=== PATIENT | male | born 1965 | race Caucasian/White ===

== ENCOUNTER 2016-07-03 19:49 | Emergency (ER) | payer MEDICAID ==
[2016-07-03 20:16] VITALS: BP 143/81
--- NOTE | 2016-07-03 20:34 | UC ---
Dizzy HPI HPI Summary: The patient comes in today for: 1. Headache, nausea, dry throat, dizziness (he defines "dizziness" as feeling "lost"). Onset: Today. Palliative/provocative: Breathing fast makes him feel better. Quality: headache. Region: Head Severity: 10 (headache." Time: Comes and goes. Associated symptoms: Dizziness: He states that he will have disorientation for 20 seconds. He denies any problems with heaviness of limbs. He states that the "dizziness" will start as headache--then "Like something is leaking," then nausea, then dry throat, and then cold sweats. These episodes last 3-5 minutes and he has had 6 episodes today. FEvers: None. He is not having any of these symptoms at this time except for the "slight headache." Otherwise he feels well. * - History Of Current Complaint Chief Complaint: UCGeneralIllness Stated Complaint: HEADACHE NAUSEA LEFT ARM TINGLY Time Seen by Provider: 07/03/16 20:14 Hx Obtained From: Patient, Family/Tool Specialist - Allergies/Home Medications Allergies/Adverse Reactions: Allergies Allergy/AdvReac Type Severity Reaction Status Date / Time No Known Allergies Allergy Verified 07/03/16 20:16 Home Medications: Home Medications Amlodipine Besylate [Norvasc 5 mg tab] 5 mg PO DAILY 07/03/16 [History Confirmed 07/03/16] Aspirin [Aspirin 81 MG TAB] 81 mg PO DAILY 07/03/16 [History Confirmed 07/03/16] Clopidogrel TAB* [Plavix TAB*] 75 mg PO DAILY 07/03/16 [History Confirmed ] Losartan/HCTZ 100/25 (NF) [Hyzaar 100/25 (NF)] 1 tab PO DAILY 07/03/16 [History Confirmed 07/03/16] Omeprazole CAP* [Prilosec CAP* 20 MG] 20 mg PO DAILY 07/03/16 [History Confirmed 07/03/16] PMH/Surg Hx/FS Hx/Imm Hx Previously Healthy: No - PVD with right leg stent, "mood disorder." Endocrine History Of: Denies: Diabetes, Thyroid Disease, Hyperthyroidism, Hypothyroidism, Dyslipidemia Cardiovascular History Of: Reports: Hypertension Denies: Cardiac Disorders, Pacemaker/ICD, Myocardial Infarction, Congestive Heart Failure, Atrial Fibrillation, Deep Vein Thrombosis, Bleeding Disorders Respiratory History Of: Denies: COPD, Asthma, Bronchitis, Pneumonia, Pulmonary Embolism GI/ History Of: Reports: Gastroesophageal Reflux Denies: Ulcer, Gastrointestinal Bleed, Gall Bladder Disease, Kidney Stones, Diverticulitis, Renal Disease, Urosepsis Neurological History Of: Denies: TIA, CVA, Dementia, Seizures, Migraine Psychological History Of: Denies: Anxiety, Depression, Bipolar Disorder, Schizophrenia, Post Traumatic Stress Disorder Cancer History Of: Denies: Lung Cancer, Breast Cancer, Prostate Cancer, Cervical Cancer Other History Of: Anticoagulant Therapy - Aspirin and Plavix for PVD/stent. Negative For: HIV, Hepatitis B, Hepatitis C - Surgical History Surgical History: Yes Surgery Procedure, Year, and Place: iliac arteries stenting 04/2016 for partial occlusion - Family History Known Family History: Positive: Cardiac Disease, Hypertension, Other - Denies [facility] of vascular disease - Social History Occupation: Employed Full-time Alcohol Use: None Substance Use Type: None Smoking Status (MU): Heavy Every Day Tobacco Smoker Type: Cigarettes Amount Used/How Often: 1 PPD Length of Time of Smoking/Using Tobacco: 37 Years Have You Smoked in the Last Year: Yes Household Exposure Type: Cigarettes Review of Systems Constitutional: Negative Skin: Negative Eyes: Negative ENT: Negative Respiratory: Negative Cardiovascular: Negative Gastrointestinal: Negative Genitourinary: Negative All Other Systems Reviewed And Are Negative: Yes Physical Exam Triage Information Reviewed: Yes Appearance: Well-Appearing, No Pain Distress, Well-Nourished Vital Signs: Initial Vital Signs Temp 98.3 F 07/03/16 20:04 Pulse 65 07/03/16 20:04 Resp 24 07/03/16 20:04 BP 143/81 07/03/16 20:04 Pulse Ox 98 07/03/16 20:04 Vital Signs Reviewed: Yes Eyes: Positive: Conjunctiva Clear. Negative: Discharge ENT: Positive: Hearing grossly normal. Negative: Pharyngeal erythema, Nasal congestion Dental: Negative: Gross Decay/Caries @, Dental Fracture @ Neck: Positive: Supple, Nontender, No Lymphadenopathy, Other: - No carotid bruits. Carotid pulses were 2+/2 x 2. Negative: Nuchal Rigidity Respiratory: Positive: Lungs clear, No respiratory distress, No accessory muscle use. Negative: Rhonchi, Wheezing Cardiovascular: Positive: RRR, No Murmur Abdomen Description: Positive: Nontender, No Organomegaly, Soft. Negative: Distended, Guarding Musculoskeletal: Positive: Strength Intact, ROM Intact, No Edema Neurological: Positive: Alert, Muscle Tone Normal Psychological: Positive: Age Appropriate Behavior, Consolable Skin: Negative: rashes, breakdown Diagnostics - Laboratory Diagnostic Studies Completed/Ordered: EKG: Rate: 63. Rhythm: Sinus. Ectopy: None. Acute changes: None Dizzy Course/Dx - Course Course Of Treatment: The patient was told that his symptoms were very atypical and non-focal making the formation of a diagnosis difficult. Considering his vasculopathic history, he was told that my concern is that his constellation of symptoms may very well be an unusual TIA-like event, and therefore my recommendation was for him to go the ER. However, he did not want to do that. He was told what the worse case scenario was (permanent stoke if he survived). All his questions were answered. - Differential Dx/Diagnosis Provider Diagnoses: Headache. Dizziness Discharge - Discharge Plan Condition: Stable Disposition: AGAINST MEDICAL ADVICE Patient Education Materials: Dizziness (ED), Transient Ischemic Attack (ED) Referrals: Non Staff,Doctor [Primary Care Provider] - As Soon As Possible (If you are not going to the ER at this time, please reconsider if you get worse. Otherwise, please see your primary care provider as soon as you can.)
== END 2016-07-03 21:07 | disposition left against medical advice (07) ==
LOC: UCCORT 19:49
DX: R51 Headache (principal); R42 Dizziness and giddiness; F17.210 Nicotine dependence, cigarettes, uncomplicated
CPT/HCPCS: 93005; 99212; G0463

== ENCOUNTER 2018-08-21 14:24 | Emergency (ER) | payer MEDICAID, OTHER ==
[2018-08-21 14:46] VITALS: BP 149/78
--- NOTE | 2018-08-21 15:05 | UC ---
Shoulder Pain HPI - HPI Summary HPI Summary: 53 yo right handed male with left shoulder pain x 2 days no injury he has been working removing kitchen cabinets no hx prior shoulder issuess - History of Current Complaint Chief Complaint: UCUpperExtremity Stated Complaint: LEFT SHOULDER PAIN Time Seen by Provider: 08/21/18 14:41 Hx Obtained From: Patient Onset/Duration: Gradual Onset Severity Initially: Moderate Severity Currently: Severe Location Of Pain: Is Diffuse Pain Intensity: 8 Pain Scale Used: 0-10 Numeric Character: Aching, Throbbing, Spasmodic, Stiffness Aggravating Factor(s): Movement, Internal Rotation, External Rotation, Abduction Alleviating Factor(s): Nothing Related History: Dominant Hand Right Torso: 1 - pain/tenderness - Allergies/Home Medications Allergies/Adverse Reactions: Allergies Allergy/AdvReac Type Severity Reaction Status Date / Time No Known Allergies Allergy Verified 08/21/18 14:38 PMH/Surg Hx/FS Hx/Imm Hx Previously Healthy: Yes Endocrine History: Dyslipidemia Cardiovascular History: Hypertension Other Cardiovascular History: peripheral vascular dz Other History Of: Anticoagulant Therapy - Aspirin and Plavix for PVD/stent. Negative For: HIV, Hepatitis B, Hepatitis C - Surgical History Surgical History: Yes Surgery Procedure, Year, and Place: iliac arteries stenting 04/2016 for partial occlusion - Family History Known Family History: Positive: Cardiac Disease, Hypertension, Other - Denies [facility] of vascular disease - Social History Alcohol Use: Rare Substance Use Type: None Smoking Status (MU): Heavy Every Day Tobacco Smoker Type: Cigarettes Amount Used/How Often: 7 CIGS ADAY Length of Time of Smoking/Using Tobacco: 37 Years Have You Smoked in the Last Year: Yes Household Exposure Type: Cigarettes Review of Systems All Other Systems Reviewed And Are Negative: Yes Constitutional: Positive: Negative Skin: Positive: Negative Eyes: Positive: Negative ENT: Positive: Negative Respiratory: Positive: Negative Cardiovascular: Positive: Negative Gastrointestinal: Positive: Negative Genitourinary: Positive: Negative Neurovascular: Positive: Negative Musculoskeletal: Positive: Arthralgia - left shoulder Neurological: Positive: Negative Psychological: Positive: Negative Physical Exam Triage Information Reviewed: Yes Appearance: Well-Appearing, No Pain Distress, Well-Nourished Vital Signs: Initial Vital Signs Temp 97.2 F 08/21/18 14:40 Pulse 75 08/21/18 14:40 Resp 18 08/21/18 14:40 BP 149/78 08/21/18 14:40 Pulse Ox 98 08/21/18 14:40 Vital Signs Reviewed: Yes Eyes: Positive: Conjunctiva Clear ENT: Positive: Hearing grossly normal, Uvula midline. Negative: Nasal congestion, Nasal drainage, Tonsillar exudate, Trismus, Hoarse voice Neck: Positive: Supple, Nontender, No Lymphadenopathy Respiratory: Positive: Lungs clear, Normal breath sounds, No respiratory distress Cardiovascular: Positive: RRR, No Murmur Musculoskeletal: Positive: ROM Limited @ - left shoulder - unable to abduct > 30 degrees, pain with int and ext rotation Neurological: Positive: Alert Psychological Exam: Normal Skin Exam: Normal Diagnostics - Radiology No standard instances Radiology Interpretation Completed By: Radiologist Summary of Radiographic Findings: mild AC arthritis Shoulder Course/Dx - Course Course Of Treatment: pt declined sling, ortho referral or steroid injection stated he will see his MD Thursday - Differential Dx/Diagnosis Provider Diagnosis: Left shoulder tendonitis Discharge - Sign-Out/Discharge Documenting (check all that apply): Patient Departure All imaging exams completed and their final reports reviewed: Yes - Discharge Plan Condition: Stable Disposition: HOME Patient Education Materials: Tenosynovitis (ED) Referrals: Aurora Pendleton MD [Primary Care Provider] - 2 Days Additional Instructions: heat and range of motion as discussed - Billing Disposition and Condition Condition: STABLE Disposition: Home
== END 2018-08-21 15:53 | disposition home or self-care (01) ==
LOC: UCCORT 14:24
DX: M75.92 Shoulder lesion, unspecified, left shoulder (principal); X50.0XXA Overexertion from strenuous movement or load, initial encounter; Y93.89 Activity, other specified; Y92.9 Unspecified place or not applicable; I10 Essential (primary) hypertension; F17.210 Nicotine dependence, cigarettes, uncomplicated
CPT/HCPCS: 99212; G0463